=== PATIENT | female | born 1985 | race Caucasian/White ===

== ENCOUNTER 2018-08-25 18:17 | Observation (INO) | payer SELFPAY ==
[~2018-08-25] VITALS: Ht 152.4 cm; Wt 45.8 kg
[~2018-08-25 18:17] MED LIST: ANTIBIOTIC; CELE-1 PO; DIPH50VI24 IV; DON PO; DOXY1TAB6 PO; ESCI5TAB10 PO; LOR5/325 PO; NIT100 PO; NIT50 PO; NORE0.3521 PO; OND4 PO; OND8 PO; ONDA4TAB PO; ONDA4TAB9 PO; ONDA4VIA3 IV; PAN20 PO; PAN40 PO; PER PO; PRO25 IV; VANC1VIA14; [UNRECOGNIZED DRUG - CODE] IV; [UNRECOGNIZED DRUG - CODE] IVP
--- NOTE | 2018-08-25 18:26 | ER Report ---
History and Physical Time Seen By MD: 18:25 HPI/ROS CHIEF COMPLAINT: Nausea and vomiting HISTORY OF PRESENT ILLNESS: This is a 33-year-old female who presents to the emergency department for nausea and vomiting. This is a , 8 week patient who has had recurrent nausea and vomiting. She has a history of hyperemesis gravidarum, she's had this with each . She is seeing Dr. Bhat, was given some Zofran, took some Zofran this morning with little to no relief, she's not taken anything since. No diarrhea. No chest pain or shortness breath. No fevers or chills. Mild epigastric discomfort. No dysuria. No other complaints. REVIEW OF SYSTEMS: Constitutional: No fever, no chills. Eyes: No discharge. ENT: No sore throat. Cardiovascular: No chest pain, no palpitations. Respiratory: No cough, no shortness of breath. Gastrointestinal: As above. CANCER REGISTRY MANAGER: As above. Genitourinary: No hematuria. Musculoskeletal: No back pain. Skin: No rashes. Neurological: No headache. Allergies: Coded Allergies: Penicillins (Verified Allergy, Intermediate, 08/25/18) Sulfa (Sulfonamide Antibiotics) (Verified Allergy, Mild, 08/25/18) metoclopramide (Verified Allergy, Mild, DOESN'T FEEL WELL WITH, 08/25/18) promethazine (Verified Adverse Reaction, Intermediate, TWITCHY, 08/25/18) Uncoded Allergies: TEGADERM TAPE (Allergy, Mild, 12/01/10) Home Meds Active Scripts Prednisone 10 Mg Tab (PREDNISONE 10 MG TAB) 10 Mg Tablet, 10 MG PO QDAY for Naus ea for 14 Days, #20 TAB 0 Refills Day 1: 40mg po daily Day 2-4: 20 mg po daily Day 5-7: 10mg po daily Day 7-14: 5mg po daily Prov:LANDRY KIRKPATRICK CNM 08/26/18 Ondansetron 4 Mg Odt (ONDANSETRON 4 MG ODT) 4 Mg Tab.rapdis, 8 MG PO Q8H PRN for NAUSEA/VOMITING, #30 TAB 3 Refills Prov:ANA ECHOLS DO 08/23/18 Reported Medications Vits W-Ca,Fe,Fa(<1MG) ( VITAMINS) 1 Each Tablet, 1 EACH PO DAILY, TAB 08/26/18 Discontinued Reported Medications Norethindrone (Jolivette) 0.35 Mg Tablet, 0.35 MG PO DAILY, 0 Refills 12/09/10 Discontinued Scripts Dextrose 5%-Lactated Ringers (DEXTROSE 5%-LR IV SOLUTION) 1,000 Ml Iv.soln, 1000 ML IV ONCE, #2 L 0 Refills Prov:ANA ECHOLS DO 08/23/18 Pyridoxine Hcl (PYRIDOXINE HCL) 100 Mg/Ml Soln, 40 MG IVP ONCE, #40 MG 0 Refills Prov:ANA ECHOLS DO 08/23/18 Doxylamine Succinate/Vit B6 (Bonjesta ER 20-20 mg Tablet) 20 Mg-20 Mg Tab.ir.dr, 1 TAB PO DIRECTED, #60 TAB 6 Refills 1 tab PO BID Prov:ANA ECHOLS DO 08/23/18 Past Medical/Surgical History The patient has a past medical and surgical history of hematochezia, diarrhea, hyperemesis gravidarum with all pregnancies, , wears glasses and contacts, right breast lumpectomy, benign, depression. Reviewed Nurses Notes: Yes Hx Smoking: No Constitutional Vital Sign - Last 24 Hours 08/25/18 08/25/18 08/25/18 08/25/18 18:23 18:23 18:47 19:00 Temp 98.0 Pulse 67 55 B/P (MAP) 113/76 (88) 113/76 110/68 (82) Pulse Ox 98 100 O2 Delivery Room Air 08/25/18 08/25/18 19:02 19:17 Pulse 56 56 Pulse Ox 100 97 Physical Exam General Appearance: The patient is alert, has no immediate need for airway protection and no signs of toxicity. Eyes: Pupils equal and round no pallor or injection. ENT, Mouth: Mucous membranes are moist. Respiratory: There are no retractions, lungs are clear to auscultation. Cardiovascular: Regular rate and rhythm. Gastrointestinal: Abdomen is soft and non tender, no masses, bowel sounds normal. Neurological: Alert and wanted 4. Moving all extremities. Following all commands. No focal neuro deficits. Skin: Warm and dry, no rashes. Musculoskeletal: Neck is supple non tender. Extremities are nontender, nonswollen and have full range of motion. DIFFERENTIAL DIAGNOSIS: After history and physical exam differential diagnosis was considered for nausea and vomiting including but not limited to gastroenteritis, hyperemesis gravidarum, gastritis, appendicitis, and medication side effect. Medical Decision Making Data Points Result Diagram: 08/25/18183308/25/184 Laboratory Hematology Test 08/25/18 18:34 08/25/18 19:59 Red Blood Count 5.54 M/uL (4.17-5.56) Mean Corpuscular Volume 86.5 fL (80.0-96.0) Mean Corpuscular Hemoglobin 29.6 pg (26.0-33.0) Mean Corpuscular Hemoglobin Concent 34.3 g/dL (32.0-36.0) Red Cell Distribution Width 12.6 % (11.5-14.5) Mean Platelet Volume 8.7 fL (7.2-11.1) Neutrophils (%) (Auto) 71.6 % (39.4-72.5) Lymphocytes (%) (Auto) 21.2 % (17.6-49.6) Monocytes (%) (Auto) 5.4 % (4.1-12.4) Eosinophils (%) (Auto) 0.4 % (0.4-6.7) Basophils (%) (Auto) 1.4 % (0.3-1.4) Nucleated RBC Relative Count (auto) 0.1 /100WBC Neutrophils # (Auto) 9.1 K/uL (2.0-7.4) Lymphocytes # (Auto) 2.7 K/uL (1.3-3.6) Monocytes # (Auto) 0.7 K/uL (0.3-1.0) Eosinophils # (Auto) 0.1 K/uL (0.0-0.5) Basophils # (Auto) 0.2 K/uL (0.0-0.1) Nucleated RBC Absolute Count (auto) 0.01 K/uL Peripheral Blood Smear Yes Y/N Sodium Level 136 mmol/L (137-145) Potassium Level 3.3 mmol/L (3.5-5.0) Chloride Level 102 mmol/L (98-107) Carbon Dioxide Level 20 mmol/L (22-31) Blood Urea Nitrogen 9 mg/dl (7-18) Creatinine 0.60 mg/dl (0.52-1.04) Glomerular Filtration Rate Calc > 60.0 Random Glucose 92 mg/dl (75-110) Calcium Level 10.0 mg/dl (8.4-10.2) Total Bilirubin 0.7 mg/dl (0.2-1.3) Aspartate Amino Transf (AST/SGOT) 21 U/L (0-35) Alanine Aminotransferase (ALT/SGPT) < 6 U/L (0-56) Alkaline Phosphatase 64 U/L (0-126) Total Protein 8.9 g/dl (6.3-8.2) Albumin 4.7 g/dl (3.5-5.0) Urine Color Yellow Urine Clarity Cloudy Urine pH 6.0 pH (4.8-9.5) Urine Specific Stella 1.025 Urine Protein Negative mg/dL (NEGATIVE) Urine Glucose (UA) Negative mg/dL (NEGATIVE) Urine Ketones 80 mg/dL (NEGATIVE) Urine Blood Negative (NEGATIVE) Urine Nitrite Negative (NEGATIVE) Urine Bilirubin Negative (NEGATIVE) Urine Urobilinogen Negative mg/dL (0.2-1.9) Urine Leukocyte Esterase Moderate (NEGATIVE) Urine RBC 2 /HPF (0-2/HPF) Urine WBC 55 /HPF (0-5/HPF) Urine Squamous Epithelial Cells Many /LPF (</=FEW) Urine Bacteria Negative /HPF (NONE-FEW) Urine Mucus Few /HPF (NONE-FEW) Chemistry Test 08/25/18 18:34 08/25/18 19:59 White Blood Count 12.7 k/uL (4.5-11.0) Red Blood Count 5.54 M/uL (4.17-5.56) Hemoglobin 16.4 g/dL (12.0-16.0) Hematocrit 47.9 % (34.0-47.0) Mean Corpuscular Volume 86.5 fL (80.0-96.0) Mean Corpuscular Hemoglobin 29.6 pg (26.0-33.0) Mean Corpuscular Hemoglobin Concent 34.3 g/dL (32.0-36.0) Red Cell Distribution Width 12.6 % (11.5-14.5) Platelet Count 257 K/uL (150-450) Mean Platelet Volume 8.7 fL (7.2-11.1) Neutrophils (%) (Auto) 71.6 % (39.4-72.5) Lymphocytes (%) (Auto) 21.2 % (17.6-49.6) Monocytes (%) (Auto) 5.4 % (4.1-12.4) Eosinophils (%) (Auto) 0.4 % (0.4-6.7) Basophils (%) (Auto) 1.4 % (0.3-1.4) Nucleated RBC Relative Count (auto) 0.1 /100WBC Neutrophils # (Auto) 9.1 K/uL (2.0-7.4) Lymphocytes # (Auto) 2.7 K/uL (1.3-3.6) Monocytes # (Auto) 0.7 K/uL (0.3-1.0) Eosinophils # (Auto) 0.1 K/uL (0.0-0.5) Basophils # (Auto) 0.2 K/uL (0.0-0.1) Nucleated RBC Absolute Count (auto) 0.01 K/uL Peripheral Blood Smear Yes Y/N Glomerular Filtration Rate Calc > 60.0 Calcium Level 10.0 mg/dl (8.4-10.2) Total Bilirubin 0.7 mg/dl (0.2-1.3) Aspartate Amino Transf (AST/SGOT) 21 U/L (0-35) Alanine Aminotransferase (ALT/SGPT) < 6 U/L (0-56) Alkaline Phosphatase 64 U/L (0-126) Total Protein 8.9 g/dl (6.3-8.2) Albumin 4.7 g/dl (3.5-5.0) Urine Color Yellow Urine Clarity Cloudy Urine pH 6.0 pH (4.8-9.5) Urine Specific Stella 1.025 Urine Protein Negative mg/dL (NEGATIVE) Urine Glucose (UA) Negative mg/dL (NEGATIVE) Urine Ketones 80 mg/dL (NEGATIVE) Urine Blood Negative (NEGATIVE) Urine Nitrite Negative (NEGATIVE) Urine Bilirubin Negative (NEGATIVE) Urine Urobilinogen Negative mg/dL (0.2-1.9) Urine Leukocyte Esterase Moderate (NEGATIVE) Urine RBC 2 /HPF (0-2/HPF) Urine WBC 55 /HPF (0-5/HPF) Urine Squamous Epithelial Cells Many /LPF (</=FEW) Urine Bacteria Negative /HPF (NONE-FEW) Urine Mucus Few /HPF (NONE-FEW) Urinalysis Test 08/25/18 19:59 Urine Color Yellow Urine Clarity Cloudy Urine pH 6.0 pH (4.8-9.5) Urine Specific Stella 1.025 Urine Protein Negative mg/dL (NEGATIVE) Urine Glucose (UA) Negative mg/dL (NEGATIVE) Urine Ketones 80 mg/dL (NEGATIVE) Urine Blood Negative (NEGATIVE) Urine Nitrite Negative (NEGATIVE) Urine Bilirubin Negative (NEGATIVE) Urine Urobilinogen Negative mg/dL (0.2-1.9) Urine Leukocyte Esterase Moderate (NEGATIVE) Urine RBC 2 /HPF (0-2/HPF) Urine WBC 55 /HPF (0-5/HPF) Urine Squamous Epithelial Cells Many /LPF (</=FEW) Urine Bacteria Negative /HPF (NONE-FEW) Urine Mucus Few /HPF (NONE-FEW) ED Course/Re-evaluation Clinical Indication for ER IV: Hydration, IV Access ED Course The patient was admitted to room. A history and physical were obtained. Diff erential diagnoses were considered. An IV was started. A CBC, CMP, UA were collected. 2 L normal saline were administered, 4 mg IV Zofran 2 were given. Patient had very minimal relief of her symptoms. CBC showing white count of 12.7, H&H 16.4 and 47.9. Sodium 136, potassium 3.3, UA showing ketonuria, urine leukocyte Estrerase, with 55 urine white blood cells and many epithelial cells, negative urine bacteria, culture was sent. I did review the patient's case with Dr. Hyman as well as Cherie Kirkpatrick, the nurse k 12 principal on-call, the patient will be admitted to the medical surgical unit, she is less than 24 weeks. Patient is agreeable with this plan and admitted. She is also given 25mg PO doxylamine. 08/25/2018 8:29:59 pm and speak with Dr. Hyman regarding the patient's case, she felt that the patient would be able to go home safely if the patient was able to keep fluids down and felt safe to go home, I did reevaluate the patient, she states she has continued nausea and does not feel that she we will go home as I do about 25 miles out of town. She's had a total of 8 mg IV Zofran and 2 L of normal saline. 08/25/2018 8:37:41 pm I did speak with Cherie Kirkpatrick the certified nurse k 12 principal on- call with Dr. Hyman's group, we reviewed the patient's case, she is agreed to admit the patient to family care for hyperemesis gravidarum. Patient continues to have severe nausea, unable to keep by mouth fluids down at this time. Decision to Disposition Date: August 25, 2018 Decision to Disposition Time: 20:35 Depart Departure Latest Vital Signs Vital Signs Date Time Temp Pulse Resp B/P (MAP) Pulse Ox O2 Delivery O2 Flow Rate FiO2 08/25/18 19:17 56 97 08/25/18 19:00 110/68 (82) 08/25/18 18:23 98.0 Room Air Impression: Primary Impression: Hyperemesis gravidarum Condition: Improved Disposition: Admitted from ER Referrals: ANA ECHOLS DO (PCP) New Scripts Prednisone 10 Mg Tab (PREDNISONE 10 MG TAB) 10 Mg Tablet 10 MG PO QDAY for Nausea for 14 Days, #20 TAB 0 Refills Day 1: 40mg po daily Day 2-4: 20 mg po daily Day 5-7: 10mg po daily Day 7-14: 5mg po daily Prov: LANDRY KIRKPATRICK CNM 08/26/18 KAROLINE ROCHE BRIDGE OPERATOR SLIP-BC August 25, 2018 18:26
[2018-08-25] MEDS ORDERED: NS(*) 0.9% 1000 ML BAG 1,000 ML IV ONE ×2 (18:35→19:40)
[2018-08-25] MEDS ORDERED: ONDANSETRON 4 MG/2 ML VIAL IVP ONE ×2 (18:35→19:05)
[2018-08-25 18:43] LABS: PLATELET COUNT, AUTOMATED 257 K/uL (150-450)
[2018-08-25] MEDS ORDERED: DOXYLAMINE SUCCINATE 25 MG TAB PO ONE (21:00)
[2018-08-25] MEDS ORDERED: FLUSH 10 ML SYR IVP PRN (22:15)
[2018-08-25] MEDS ORDERED: ONDANSETRON 4 MG/2 ML VIAL IVP PRN (22:15)
[2018-08-25] MEDS ORDERED: diphenhydrAMINE 50 MG/ML VIAL IVP PRN (22:15)
[2018-08-25] MEDS ORDERED: DOXYLAMINE SUCCINATE 25 MG TAB PO PRN (22:15)
[2018-08-25] MEDS ORDERED: ACETAMINOPHEN 325 MG TAB PO PRN (22:15)
--- NOTE | 2018-08-25 22:33 | History & Physical ---
History of Present Illness Age of Patient: 33 : 4 Para or TPAL: 3 Estimated Gestational Age: 8 Chief Complaint Pt is a 33 year old @ approximately 8 weeks by LMP who presented to the ER with significant nausea and vomiting since becoming . She came to the ER today as she was unable to tolerate PO and feeling very weak. She has a history of hyperemesis gravidarum with her previous 2 pregnancies requiring a PICC line for IVFs at home. Has not had her second OB intake for her TVUS with measurements. Was seen last week by Dr. Fox in the office because of N/V and received IVF, benadryl, and vit b6. 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 She denies vaginal bleeding, diarrhea, fever/chills, any recent illness exposure, urinary/vaginal symptoms or pain except for some abdominal tenderness from vomiting. at the bedside appearing very supportive. History Allergies: Coded Allergies: Penicillins (Verified Allergy, Intermediate, 08/25/18) Sulfa (Sulfonamide Antibiotics) (Verified Allergy, Mild, 08/25/18) metoclopramide (Verified Allergy, Mild, DOESN'T FEEL WELL WITH, 08/25/18) promethazine (Verified Adverse Reaction, Intermediate, TWITCHY, 08/25/18) Uncoded Allergies: TEGADERM TAPE (Allergy, Mild, 12/01/10) Med Rec Home Meds Active Scripts Ondansetron 4 Mg Odt (ONDANSETRON 4 MG ODT) 4 Mg Tab.rapdis, 8 MG PO Q8H PRN for NAUSEA/VOMITING, #30 TAB 3 Refills Prov:ANA FOX DO 08/23/18 Discontinued Reported Medications Norethindrone (Jolivette) 0.35 Mg Tablet, 0.35 MG PO DAILY, 0 Refills 12/09/10 Discontinued Scripts Dextrose 5%-Lactated Ringers (DEXTROSE 5%-LR IV SOLUTION) 1,000 Ml Iv.soln, 1000 ML IV ONCE, #2 L 0 Refills Prov:ANA FOX DO 08/23/18 Pyridoxine Hcl (PYRIDOXINE HCL) 100 Mg/Ml Soln, 40 MG IVP ONCE, #40 MG 0 Refills Prov:ANA FOX DO 08/23/18 Doxylamine Succinate/Vit B6 (Bonjesta ER 20-20 mg Tablet) 20 Mg-20 Mg Tab.ir.dr, 1 TAB PO DIRECTED, #60 TAB 6 Refills 1 tab PO BID Prov:ANA FOX DO 08/23/18 Review of Systems Constitutional: Weight Loss; No Fever, No Chills Neurological: No Syncope Eyes: No Vision Change Cardiovascular: No Chest Pain Respiratory: No Shortness of Breath Gastrointestinal: Nausea, Vomiting; No Diarrhea; Abdominal Pain Genitourinary: No Dysuria, No Hematuria Musculoskeletal: No Pain Exam General Exam Vital Signs Vital Signs Date Time Temp Pulse Resp B/P (MAP) Pulse Ox O2 Delivery O2 Flow Rate FiO2 08/26/18 06:47 98.6 64 12 103/60 (74) 94 Room Air General Apperance: Alert/Awake/No Acute Distress, Afebrile Neuro: No Gross deficits Eyes: Normal Extraocular Movement & Vison ENT: Other (dry cracking lips and dry mucus membranes) Cardiovascular: Regular Rate and Rhythm Respiratory: No Respiratory Distress Abdomen: Gravid - Non-Tender : No CVA Tenderness Musculoskeletal: Other (weakness all over) Extremities: No Cyanosis,Clubbing or Edema Integumentary: Skin Intact without Lesions or Rash Psychological: Alert & Oriented X3, Appropriate Mood & Affect Medical Decision Making Data Points Result Diagram: 08/25/18183308/25/181833 VTE Prophylasis: Adult Deep Vein Thrombosis/Pulmonary: No Pharmacological Contraindicati: Pt at Low Risk for VTE Mechanical Contraindications: Pt at Low Risk for VTE Assessment and Plan 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 Pt does have a Reglan and Phenergan allergy * NS with 20meqKCL at 125cc/hr for fluid and potassium replacement * Vit B6 25mg PO q 8 hours * Unisom 12.5mg q 8 hours * Zofran IV 4-8 mg PRN * Benadryl 25-50 mg PRN IV if not tolerating PO Unisom Because of her significant history and current state I will add Methylprednisolone 16mg IV or PO every 8 hours for 3 days and then taper over 2 weeks to lowest effective dose to her regime. Plan for 23 hour or less observation and then DC to home and return for regularly scheduled OB visit next week LANDRY KIRKPATRICK CNM August 25, 2018 22:33
[2018-08-25 22:46] VITALS: BP 107/69
[2018-08-25] MEDS: KCL/NS* 20 MEQ/1000 ML PREMIX 1,000 ML IV SCH (22:59)
[2018-08-25] MEDS: PYRIDOXINE HCL 50 MG TAB PO SCH (23:04)
[2018-08-25] MEDS: methylPREDNIS SUCC 125 MG/2ML IVP SCH (23:28)
[2018-08-26 04:04] VITALS: BP 100/62
[2018-08-26 06:47] VITALS: BP 103/60
[2018-08-26] MEDS: KCL/NS* 20 MEQ/1000 ML PREMIX 1,000 ML IV SCH (07:09)
[2018-08-26] MEDS ORDERED: PREN-127 PO (08:35)
[2018-08-26] MEDS: methylPREDNIS SUCC 125 MG/2ML IVP SCH (08:36)
[2018-08-26] MEDS: PYRIDOXINE HCL 50 MG TAB PO SCH ×2 (08:36→14:38)
--- NOTE | 2018-08-26 09:05 | OB/GYN Discharge Summary ---
Discharge Summary Reason for Hosp/Final Diag: (1) Nausea and vomiting during prior to 22 weeks gestation Status: Acute Hospital Course & Plan: Pt is a 33 year old @ approximately 7 6/7 weeks by LMP 07/01/18 who presented to the ER last evening with significant nausea and vomiting since becoming . She came to the ER as she was unable to tolerate PO and feeling very weak. She has a history of hyperemesis gravidarum with her previous 2 pregnancies requiring a PICC line for IVFs at home. Has not had her second OB intake for her TVUS with measurements. Was seen last week by Dr. Fox in the office because of N/V and received IVF, benadryl, and vit b6. 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 She denied vaginal bleeding, diarrhea, fever/chills, any recent illness exposure, urinary/vaginal symptoms or pain except for some abdominal tenderness from vomiting. at the bedside appearing very supportive. Overnight she has been sleeping and is so far tolerating PO this am and is feeling much better. She received 2 doses of methylprednisone and 2 doses of vit B6, as well as Unisom in the ER. This regime as seemed to help her nausea and vomiting as she denies nausea this am. She as voided X1 and is on her 4th bag of IVF since the ER. She feels ready to go home today after breakfast. Plan for N/V at home: * Vit B6 25mg PO every 8 hours * Unisom 25mg at bedtime and 12.5mg twice during the day PRN * Prednisone 40mg x 1 day 20mg x3 days 10mg x 3 days 5mg x 7 days DC to home today after tolerating PO and return for regularly scheduled OB visit next week or sooner if needed Lates Vital Signs Vital Signs Date Time Temp Pulse Resp B/P (MAP) Pulse Ox O2 Delivery O2 Flow Rate FiO2 08/26/18 06:47 98.6 64 12 103/60 (74) 94 Room Air Weight (Pounds): 101 Result Diagram: 08/25/18183308/25/181833 Condition: Improved Discharge: Home Home Meds Active Scripts Ondansetron 4 Mg Odt (ONDANSETRON 4 MG ODT) 4 Mg Tab.rapdis, 8 MG PO Q8H PRN for NAUSEA/VOMITING, #30 TAB 3 Refills Prov:ANA FOX DO 08/23/18 Reported Medications Vits W-Ca,Fe,Fa(<1MG) ( VITAMINS) 1 Each Tablet, 1 EACH PO DAILY, TAB 08/26/18 Discontinued Reported Medications Norethindrone (Jolivette) 0.35 Mg Tablet, 0.35 MG PO DAILY, 0 Refills 12/09/10 Discontinued Scripts Dextrose 5%-Lactated Ringers (DEXTROSE 5%-LR IV SOLUTION) 1,000 Ml Iv.soln, 1000 ML IV ONCE, #2 L 0 Refills Prov:ANA FOX DO 08/23/18 Pyridoxine Hcl (PYRIDOXINE HCL) 100 Mg/Ml Soln, 40 MG IVP ONCE, #40 MG 0 Refills Prov:ANA FOX DO 08/23/18 Doxylamine Succinate/Vit B6 (Bonjesta ER 20-20 mg Tablet) 20 Mg-20 Mg Tab.ir.dr, 1 TAB PO DIRECTED, #60 TAB 6 Refills 1 tab PO BID Prov:ANA FOX DO 08/23/18 Follow up Referrals: MEAL GRINDER TENDER @ [facility] with ANA FOX DO Follow up in: 3-4 days, Keep scheduled appoint Discharge Diet: As Tolerates, Resume Prior Admit Diet, Increase Fluid Intake Discharge Activity: As Tolerates Special Instructions: Vit B6 25mg PO every 8 hours Unisom 25mg at bedtime and 12.5mg twice during the day LANDRY POPE CNM August 26, 2018 09:05
[2018-08-26 09:58] VITALS: Ht 152.4 cm; Wt 45.8 kg
[2018-08-26] MEDS ORDERED: PRED-1 PO (10:31)
[2018-08-26 14:38] VITALS: BP 104/58
[2018-08-28] MEDS ORDERED: ONDA4VIA3 INJ (11:44)
[2018-09-06] MEDS ORDERED: ONDA4TAB9 PO (11:39)
== END 2018-08-26 09:28 | disposition home or self-care (01) ==
LOC: ER 18:23 → INTOOBSV 21:30 → UNDOADMIN 21:30 → MED 21:30 → EDBEDREQ 22:03
PROVIDERS: ADMIT Obstetrics & Gynecology; ATTEND Obstetrics & Gynecology
DX: O21.0 Mild hyperemesis gravidarum (principal); Z3A.08 8 weeks gestation of pregnancy; R53.1 Weakness
CPT/HCPCS: 81001; 85025; 87088; 96361; 96374; 96375; 99284; G0378; J2405; J2930; J3480; J7030; 82040; 82247; 82310; 82374; 82435; 82565; 82947; 84075; 84132; 84155; 84295; 84450; 84460; 84520

== ENCOUNTER → 2018-08-28 | Outpatient (CLI) | payer SELFPAY ==
[2018-08-26 09:58] VITALS: BMI 19.7
[~2018-08-28] MED LIST changes: +ONDA4VIA3 INJ; +PRED-1 PO; +PREN-127 PO
--- NOTE | 2018-08-28 14:40 | RADIOLOGY IMAGING REPORT ---
FACILITY: [facility] [place] PATIENT NAME: Eleonora Hendrix : 1985 MR: [id number] V: [id number] EXAM DATE: ORDERING PHYSICIAN: ANA ECHOLS TECHNOLOGIST: Location: [facility] [place] Patient: Eleonora Hendrix : 1985 Visit/Account:[id number] Date of Sevice: 08/28/2018 Exam type: PICC LINE INSERTION, US GUIDANCE VASCULAR ACCESS History: Hyperemesis gravidarum Comparison: None. Findings: Informed consent was obtained. The patient's left arm was prepped and draped usual sterile fashion. Local anesthesia was accomplished 1% lidocaine. Utilizing direct continuous sonographic guidance th e patent left basilic vein was accessed with an 18-gauge needle. A guidewire was passed through the needle with the distal tip projecting over superior vena cava which was confirmed by brief fluoroscop ic imaging. The Needle was removed and a peel-away sheath was advanced over the guidewire. The 4 Fr ench single lumen power PICC was trimmed to a length of 37 cm.. Following removal of the guidewire. The 4 Micronesian PICC line was inserted through the peel-away sheath. Despite several attempts the cath eter would not advance beyond the upper left thorax. A stenosis in the left subclavian vein is suspe cted. The catheter tip was placed at the junction of the left axillary vein and left subclavian vein . The PICC line was flushed with 5 mL of saline flush. The distal portion of the PICC line was adhe red to the patient's arm with a sterile dressing. The procedure was accomplished without apparent co mplication. The sonographic images were saved to PACS. The dose area product was 10.08 micro-Johnson p er meter squared. IMPRESSION: 1. Successful placement of a 37 cm long trimmed 4 Micronesian single lumen power PICC inserted via the pa tent left basilic vein. The catheter could not be advanced beyond the left upper thorax. A stenosis in the left subclavian vein is suspected. The distal tip of the PICC line was placed at the junctio n of the left axillary and subclavian veins. Report Dictated By: Lara Segura MD at 08/28/2018 2:30 PM Report E-Signed By: Lara Segura MD at 08/28/2018 2:36 PM WSN:[email or web address]
--- NOTE | 2018-08-28 14:41 | RADIOLOGY IMAGING REPORT ---
FACILITY: [facility] PATIENT NAME: Eleonora Hendrix : 1985 MR: [id number] V: [id number] EXAM DATE: ORDERING PHYSICIAN: ANA ECHOLS TECHNOLOGIST: Location: [facility] - [place] Patient: Eleonora Hendrix : 1985 Visit/Account:[id number] Date of Sevice: 08/28/2018 Exam type: PICC LINE INSERTION, US GUIDANCE VASCULAR ACCESS History: Hyperemesis gravidarum Comparison: None. Findings: Informed consent was obtained. The patient's left arm was prepped and draped usual sterile fashion. Local anesthesia was accomplished 1% lidocaine. Utilizing direct continuous sonographic guidance th e patent left basilic vein was accessed with an 18-gauge needle. A guidewire was passed through the needle with the distal tip projecting over superior vena cava which was confirmed by brief fluoroscop ic imaging. The Needle was removed and a peel-away sheath was advanced over the guidewire. The 4 Fr ench single lumen power PICC was trimmed to a length of 37 cm.. Following removal of the guidewire. The 4 [place] Korean PICC line was inserted through the peel-away sheath. Despite several attempts the cath eter would not advance beyond the upper left thorax. A stenosis in the left subclavian vein is suspe cted. The catheter tip was placed at the junction of the left axillary vein and left subclavian vein . The PICC line was flushed with 5 mL of saline flush. The distal portion of the PICC line was adhe red to the patient's arm with a sterile dressing. The procedure was accomplished without apparent co mplication. The sonographic images were saved to PACS. The dose area product was 10.08 micro-Johnson p er meter squared. IMPRESSION: 1. Successful placement of a 37 cm long trimmed 4 [place] Korean single lumen power PICC inserted via the pa tent left basilic vein. The catheter could not be advanced beyond the left upper thorax. A stenosis in the left subclavian vein is suspected. The distal tip of the PICC line was placed at the junctio n of the left axillary and subclavian veins. Report Dictated By: Lara Segura MD at 08/28/2018 2:30 PM Report E-Signed By: Lara Segura MD at 08/28/2018 2:36 PM WSN:[email or web address]
== END ==
LOC: US 11:53
PROVIDERS: ATTEND Obstetrics & Gynecology
DX: O21.0 Mild hyperemesis gravidarum (principal)
CPT/HCPCS: 36573; C1751

== ENCOUNTER 2018-08-30 15:20 | Emergency (ER) | payer SELFPAY ==
[2018-08-26 09:58] VITALS: BMI 19.7
[2018-08-30 15:25] VITALS: BP 119/70
[2018-08-30] MEDS ORDERED: NS(*) 0.9% 1000 ML BAG 1,000 ML IV ONE (15:50)
--- NOTE | 2018-08-30 16:07 | ER Report ---
History and Physical Time Seen By MD: 15:30 Hx. of Stated Complaint: PATIENT WAS SENT TO ER BY DR FLETCHER FOR HYPEREMESIS AND A PSYCH WORKUP HPI/ROS CHIEF COMPLAINT: Hyperemesis anxiety HISTORY OF PRESENT ILLNESS: Patient is a 33-year-old female sent here for evaluation from [facility] has a long history of hyperemesis gravidarum currently she is a G4 para 3 and the ultrasound performed shows potentially nonviable intrauterine and look like there was in a embryonic circumstance symptom her here for IV fluids check her hCG quantitative to see if in fact she is having a viable or threatened or incomplete miscarriage check her electrolytes. Per conversation with patient and confirming this with her OB primary care she does have a lot of external stressors a recent sister's had any abnormal obscuring an abnormal she's been recently remarried and there is some social issues regarding her and her employment and she has had been on Lexapro up until about a month resolved for about 6 months that got better but took herself off she's resumed that today she is not suicidal homic idal or gravely disabled has no other focal complaints this feels very very anxious. Patient denies any vaginal bleeding or vaginal discharge or abdominal cramping or pain REVIEW OF SYSTEMS: Respiratory: No cough, no dyspnea. Cardiovascular: No chest pain, no palpitations. Gastrointestinal: Vomiting no abdominal pain Musculoskeletal: No back pain. Remainder of the 14 system rev: Yes Allergies: Coded Allergies: Penicillins (Verified Allergy, Intermediate, 08/25/18) Sulfa (Sulfonamide Antibiotics) (Verified Allergy, Mild, 08/25/18) metoclopramide (Verified Allergy, Mild, DOESN'T FEEL WELL WITH, 08/25/18) promethazine (Verified Adverse Reaction, Intermediate, TWITCHY, 08/25/18) Uncoded Allergies: TEGADERM TAPE (Allergy, Mild, 12/01/10) Home Meds Active Scripts Prednisone 10 Mg Tab (PREDNISONE 10 MG TAB) 10 Mg Tablet, 10 MG PO QDAY for Nausea for 14 Days, #20 TAB 0 Refills Day 1: 40mg po daily Day 2-4: 20 mg po daily Day 5-7: 10mg po daily Day 7-14: 5mg po daily Prov:LANDRY KIRKPATRICK CNM 08/26/18 Ondansetron 4 Mg Odt (ONDANSETRON 4 MG ODT) 4 Mg Tab.rapdis, 8 MG PO Q8H PRN for NAUSEA/VOMITING, #30 TAB 3 Refills Prov:ANA ECHOLS DO 08/23/18 Reported Medications Vits W-Ca,Fe,Fa(<1MG) ( VITAMINS) 1 Each Tablet, 1 EACH PO DAILY, TAB 08/26/18 Discontinued Reported Medications Norethindrone (Jolivette) 0.35 Mg Tablet, 0.35 MG PO DAILY, 0 Refills 12/09/10 Discontinued Scripts Dextrose 5%-Lactated Ringers (DEXTROSE 5%-LR IV SOLUTION) 1,000 Ml Iv.soln, 1000 ML IV ONCE, #2 L 0 Refills Prov:ANA ECHOLS DO 08/23/18 Pyridoxine Hcl (PYRIDOXINE HCL) 100 Mg/Ml Soln, 40 MG IVP ONCE, #40 MG 0 Refills Prov:ANA ECHOLS DO 08/23/18 Doxylamine Succinate/Vit B6 (Bonjesta ER 20-20 mg Tablet) 20 Mg-20 Mg Tab.ir.dr, 1 TAB PO DIRECTED, #60 TAB 6 Refills 1 tab PO BID Prov:ANA ECHOLS DO 08/23/18 Reviewed Nurses Notes: Yes Old Medical Records Reviewed: Yes Hx Smoking: No Smoking Status: Never Smoker Hx Substance Use Disorder: No Constitutional Vital Sign - Last 24 Hours 08/30/18 15:25 Pulse 82 Resp 20 B/P (MAP) 119/70 Pulse Ox 96 O2 Delivery Room Air Physical Exam General Appearance: [The patient is alert, has no immediate need for airway protection and no current signs of toxicity.] Appears anxious nervous Eyes: Pupils equal and round no injection. Respiratory: Chest is non tender, lungs are clear to auscultation. Cardiac: regular rate and rhythm [ ] Gastrointestinal: Abdomen is soft and non tender, no masses, bowel sounds normal. Musculoskeletal: Neck: Neck is supple and non tender. Extremities have full range of motion and are non tender. Skin: No rashes or lesions. [ ] DIFFERENTIAL DIAGNOSIS: After history and physical exam differential diagnosis was considered for hyperemesis gravidarum anxiety panic panic attack panic disorder and thyroid issues electrolyte abnormality Medical Decision Making Data Points Result Diagram: 08/30/18 1606 08/30/18 1606 Laboratory Hematology Test 08/30/18 16:06 Red Blood Count 4.63 M/uL (4.17-5.56) Mean Corpuscular Volume 87.0 fL (80.0-96.0) Mean Corpuscular Hemoglobin 29.2 pg (26.0-33.0) Mean Corpuscular Hemoglobin Concent 33.6 g/dL (32.0-36.0) Red Cell Distribution Width 12.6 % (11.5-14.5) Mean Platelet Volume 8.5 fL (7.2-11.1) Neutrophils (%) (Auto) 70.4 % (39.4-72.5) Lymphocytes (%) (Auto) 20.7 % (17.6-49.6) Monocytes (%) (Auto) 7.6 % (4.1-12.4) Eosinophils (%) (Auto) 0.5 % (0.4-6.7) Basophils (%) (Auto) 0.8 % (0.3-1.4) Nucleated RBC Relative Count (auto) 0.1 /100WBC Neutrophils # (Auto) 6.0 K/uL (2.0-7.4) Lymphocytes # (Auto) 1.8 K/uL (1.3-3.6) Monocytes # (Auto) 0.6 K/uL (0.3-1.0) Eosinophils # (Auto) 0.0 K/uL (0.0-0.5) Basophils # (Auto) 0.1 K/uL (0.0-0.1) Nucleated RBC Absolute Count (auto) 0.01 K/uL Sodium Level 136 mmol/L (137-145) Potassium Level 3.2 mmol/L (3.5-5.0) Chloride Level 107 mmol/L (98-107) Carbon Dioxide Level 21 mmol/L (22-31) Blood Urea Nitrogen 5 mg/dl (7-18) Creatinine 0.50 mg/dl (0.52-1.04) Glomerular Filtration Rate Calc > 60.0 Random Glucose 75 mg/dl (75-110) Calcium Level 9.1 mg/dl (8.4-10.2) Total Bilirubin 0.5 mg/dl (0.2-1.3) Aspartate Amino Transf (AST/SGOT) 44 U/L (0-35) Alanine Aminotransferase (ALT/SGPT) 21 U/L (0-56) Alkaline Phosphatase 56 U/L (0-126) Total Protein 6.9 g/dl (6.3-8.2) Albumin 3.8 g/dl (3.5-5.0) Human Chorionic Gonadotropin, Quant 75527 mIU/ml Chemistry Test 08/30/18 16:06 White Blood Count 8.5 k/uL (4.5-11.0) Red Blood Count 4.63 M/uL (4.17-5.56) Hemoglobin 13.5 g/dL (12.0-16.0) Hematocrit 40.2 % (34.0-47.0) Mean Corpuscular Volume 87.0 fL (80.0-96.0) Mean Corpuscular Hemoglobin 29.2 pg (26.0-33.0) Mean Corpuscular Hemoglobin Concent 33.6 g/dL (32.0-36.0) Red Cell Distribution Width 12.6 % (11.5-14.5) Platelet Count 185 K/uL (150-450) Mean Platelet Volume 8.5 fL (7.2-11.1) Neutrophils (%) (Auto) 70.4 % (39.4-72.5) Lymphocytes (%) (Auto) 20.7 % (17.6-49.6) Monocytes (%) (Auto) 7.6 % (4.1-12.4) Eosinophils (%) (Auto) 0.5 % (0.4-6.7) Basophils (%) (Auto) 0.8 % (0.3-1.4) Nucleated RBC Relative Count (auto) 0.1 /100WBC Neutrophils # (Auto) 6.0 K/uL (2.0-7.4) Lymphocytes # (Auto) 1.8 K/uL (1.3-3.6) Monocytes # (Auto) 0.6 K/uL (0.3-1.0) Eosinophils # (Auto) 0.0 K/uL (0.0-0.5) Basophils # (Auto) 0.1 K/uL (0.0-0.1) Nucleated RBC Absolute Count (auto) 0.01 K/uL Glomerular Filtration Rate Calc > 60.0 Calcium Level 9.1 mg/dl (8.4-10.2) Total Bilirubin 0.5 mg/dl (0.2-1.3) Aspartate Amino Transf (AST/SGOT) 44 U/L (0-35) Alanine Aminotransferase (ALT/SGPT) 21 U/L (0-56) Alkaline Phosphatase 56 U/L (0-126) Total Protein 6.9 g/dl (6.3-8.2) Albumin 3.8 g/dl (3.5-5.0) Human Chorionic Gonadotropin, Quant 03372 mIU/ml ED Course/Re-evaluation ED Course ED clinical course 33-year-old female sent here for evaluation by her OB doc she is a G4 para 3 early in her with a possible early threatened miscarriage her beta Quant was over 40,000 thyroid TSH is pending she had a liter of fluid she is feeling significantly better she started back on Lexapro she's feeling better with that advised her to continue that to return if symptoms worsen also believe there is a significant psychiatric an anxiety component to the circumstances we had behavioral health come down to give her outpatient referrals and have her follow up with [facility] as scheduled Decision to Disposition Date: August 30, 2018 Decision to Disposition Time: 17:40 Depart Departure Latest Vital Signs Vital Signs Date Time Temp Pulse Resp B/P (MAP) Pulse Ox O2 Delivery O2 Flow Rate FiO2 08/30/18 15:25 82 20 119/70 96 Room Air Impression: Primary Impression: Hyperemesis gravidarum Additional Impression: Anxiety Condition: Improved Disposition: HOME OR SELF-CARE Referrals: ANA ECHOLS DO (PCP) 2 Days Patient Instructions: Hyperemesis Gravidarum (DC) Problem Qualifiers ANDERS VÁSQUEZ MD August 30, 2018 16:07
[2018-08-30 16:25] LABS: PLATELET COUNT, AUTOMATED 185 K/uL (150-450)
== END 2018-08-30 18:04 | disposition home or self-care (01) ==
LOC: ER 15:33
DX: O21.0 Mild hyperemesis gravidarum (principal); F41.9 Anxiety disorder, unspecified
CPT/HCPCS: 84443; 84702; 85025; 96360; 96361; 99284; J7030; 82040; 82247; 82310; 82374; 82435; 82565; 82947; 84075; 84132; 84155; 84295; 84450; 84460; 84520

== ENCOUNTER → 2018-08-30 | Outpatient (CLI) | payer SELFPAY ==
[2018-08-26 09:58] VITALS: BMI 19.7
== END ==
LOC: LAB 10:33
PROVIDERS: ATTEND Obstetrics & Gynecology
DX: Z11.3 Encounter for screening for infections with a predominantly sexual mode of transmission (principal); O20.0 Threatened abortion

== ENCOUNTER → 2018-09-01 | Outpatient (CLI) | payer SELFPAY ==
[2018-08-26 09:58] VITALS: BMI 19.7
== END ==
LOC: LAB 12:20
PROVIDERS: ATTEND Obstetrics & Gynecology
DX: O20.0 Threatened abortion (principal)
CPT/HCPCS: 36415; 84702

== ENCOUNTER 2018-09-18 11:10 | Outpatient (RCR) | payer SELFPAY ==
[2018-08-26 09:58] VITALS: BMI 19.7
[2018-08-28] MEDS: DLR(*) 1000 ML BAG 1,000 ML IV PRN (15:25)
[2018-08-28 16:17] VITALS: BP 99/56
[2018-08-29 09:10] VITALS: BP 106/71
[2018-08-29] MEDS: DLR(*) 1000 ML BAG 1,000 ML IV PRN (09:16)
--- NOTE | 2018-09-13 11:13 | RADIOLOGY IMAGING REPORT ---
FACILITY: [facility] PATIENT NAME: Eleonora Hendrix : 1985 MR: [id number] V: [id number] EXAM DATE: ORDERING PHYSICIAN: ANA ECHOLS TECHNOLOGIST: Location: [facility] Patient: Eleonora Hendrix : 1985 Visit/Account:[id number] Date of Sevice: 09/13/2018 OB Ultrasound < 14 weeks Additional Pertinent history: Evaluate dates COMPARISON STUDIES: None available FINDINGS: Gestational sac: intrauterine and unremarkable Yolk sac: Visualized pole: Heterogeneous echogenic structure within the gestational sac, to presumed related to a fe alice pole cardiac activity: None visualized Estimated gestational age: 6 weeks and 1 day based on average [place]-rump length Subchorionic hemorrhage: none Uterus: gravid, otherwise negative Maternal ovaries: Unremarkable Adnexa: No adnexal mass lesion or focal abnormality. Free pelvic fluid: none IMPRESSION: 1. Intrauterine gestation sac with internal echogenic focus presumed related to a pole. There is no visualized cardiac activity at this time. Estimated gestational age based on presumed crown-r ump length is 6 weeks and 1 day. Differential includes failed first trimester and early in trauterine gestation. Follow-up beta hCG and pelvic ultrasound as clinically indicated. Report Dictated By: Vince Morillo MD at 09/13/2018 11:05 AM Report E-Signed By: Vince Morillo MD at 09/13/2018 11:08 AM WSN:[email or web address]
[~2018-09-18 11:10] MED LIST changes: +DLR(*) 1000 ML BAG 1,000 ML IV PRN; +ONDANSETRON 4 MG/2 ML VIAL IVP PRN; +PYRIDOXINE IVP SCH; +diphenhydrAMINE 50 MG/ML VIAL IVP PRN
[2018-09-18 13:27] VITALS: BP 106/71
== END 2018-10-09 13:03 | disposition home or self-care (01) ==
LOC: SPU 11:10
PROVIDERS: ATTEND Obstetrics & Gynecology
DX: O21.0 Mild hyperemesis gravidarum (principal); Z45.2 Encounter for adjustment and management of vascular access device
CPT/HCPCS: 76817; 96361; 96374; J2405

== ENCOUNTER → 2018-09-18 | Outpatient (CLI) | payer BC ==
[2018-08-26 09:58] VITALS: BMI 19.7
--- NOTE | 2018-09-18 18:09 | RADIOLOGY IMAGING REPORT ---
FACILITY: [facility] [place] PATIENT NAME: Eleonora Hendrix : 1985 MR: [id number] V: [id number] EXAM DATE: ORDERING PHYSICIAN: BERTHA ROCA TECHNOLOGIST: Location: [facility] [place] Patient: Eleonora Hendrix : 1985 Visit/Account:[id number] Date of Sevice: 09/18/2018 Exam type: US VENOUS DOPPLER - UPPER EXT LT History: Previous PICC line removed today with left arm swelling Comparison: None. Findings: There is incidental 1 cm hypoechoic nodule in the left lobe the thyroid Left internal jugular vein subclavian vein axillary vein brachial vein cephalic vein radial ulnar vei ns were imaged without evidence of thrombus. These veins were compressible and demonstrated augmenta tion. There was however thrombus identified in the mid and proximal left basilic vein with partial c ompression and diminished flow. IMPRESSION: 1. Findings are consistent with partial occlusion of the mid and proximal left basilic vein with thr ombus. The results were called to Dr. Roca by the technologist at the time of the examination Report Dictated By: Lara Segura MD at 09/18/2018 6:02 PM Report E-Signed By: Lara Segura MD at 09/18/2018 6:05 PM WSN:[email or web address]
== END ==
LOC: US 16:09
PROVIDERS: ATTEND Student in an Organized Health Care Education/Training Program
DX: I74.2 Embolism and thrombosis of arteries of the upper extremities (principal)

== ENCOUNTER → 2018-09-29 | Outpatient (CLI) | payer BC ==
[2018-08-26 09:58] VITALS: BMI 19.7
[~2018-09-29] MED LIST changes: -DLR(*) 1000 ML BAG 1,000 ML IV PRN; -ONDANSETRON 4 MG/2 ML VIAL IVP PRN; -PYRIDOXINE IVP SCH; -diphenhydrAMINE 50 MG/ML VIAL IVP PRN
== END ==
LOC: LAB 12:13
PROVIDERS: ATTEND Obstetrics & Gynecology
DX: O03.9 Complete or unspecified spontaneous abortion without complication (principal)
CPT/HCPCS: 36415; 84702